=== PATIENT | female | born 1965 | race American Indian/Alaskan Native ===

== ENCOUNTER 2016-06-18 01:37 | Emergency (ER) | payer SELFPAY ==
--- NOTE | 2016-06-18 05:27 | Emergency Department Report ---
Upper Extremity - HPI Chief Complaint: Extremity Problem,Nontraumatic Stated Complaint: RT ARM PAIN Time Seen by Provider: 06/18/16 05:11 Upper Extremity: Right Forearm (tingling and burning pain) Occurred When: >5 Days Mechanism: Other (patient with history of carpal Tunnel) Symptoms: Yes Weakness, No Pain with Movement, No Deformity, No Limited Range of Movement, No Numbness, No Swelling, No Bruising/Ecchymosis, No Laceration or Abrasion Other History: Patient here reports that her right forearm with burning and tingling pain that radiated into her elbow [id number] to her wrists. She states she worked [employer] type in for long periods of today. She says she has a history of the thumb wrists pain and was diagnosed with carpal tunnel but never saw a neurologist. She reports the pain as 3 out of 10 burning pain. This has happened in the past. Denies any fever or chills. Denies any numbness or tingling to hands. Denies any trauma. Patient said that she had steroid shots in the past which worked for a while ED Review of Systems ROS: Stated complaint: RT ARM PAIN Other details as noted in HPI Comment: All other systems reviewed and negative Constitutional: denies: chills, fever Respiratory: no symptoms reported Cardiovascular: denies: chest pain, palpitations, edema, syncope Gastrointestinal: denies: abdominal pain, nausea, vomiting Musculoskeletal: arthralgia. denies: back pain Skin: denies: rash Neurological: paresthesias. denies: headache, weakness, numbness, abnormal gait , vertigo ED Past Medical Hx - Past Medical History Previous Medical History?: Yes Additional medical history: Rt thumb/wrist pain. Carpal tunnel - Surgical History Past Surgical History?: Yes Additional Surgical History: Partial HYST - Family History Family history: hypertension - Social History Smoking Status: Never Smoker Substance Use Type: Alcohol - Medications Home Medications: Home Medications Medication Instructions Recorded Confirmed Last Taken Type predniSONE [Deltasone] 50 mg PO QDAY #5 tab 06/18/16 Unknown Rx traMADol [Ultram 50 MG tab] 50 mg PO Q6HR PRN #20 tablet 06/18/16 Unknown Rx Upper Extremity Exam - Exam General: Vital signs noted. No distress. Alert and acting appropriately. This is a 51-year-old female well-nourished well-developed in no acute distress. Head and Torso: No HEENT Abnormality, No Neck Tenderness, No Chest/Lungs Abnormality, No Abdominal Tenderness, No Back Tenderness Shoulder Exam: Yes Normal Range of Motion in Shoulder, No Shoulder Tenderness, No Clavicle Tenderness, No Shoulder Deformity, No AC Joint Tenderness Arm Exam: No Arm/Humerus Tenderness, No Arm Deformity Elbow: Yes Normal Range of Motion in Elbow, No Elbow Tenderness, No Elbow Deformity Forearm: No Forearm Tenderness, No Forearm Deformity, No Pain with Pronation, No Pain with Supination Wrist: Yes Normal ROM in Wrist, No Wrist Tenderness, No Wrist Deformity, No Snuffbox Tenderness, No Pain with Axial Thumb Compression Hand: Yes Normal ROM in Digit(s), No Hand Tenderness, No Hand Deformity, No Digit Tenderness, No Digit(s) Deformity, No Tendon Dysfunction CMS Exam: Yes Normal Distal Pulses, Yes Normal Capillary Refill, Yes Normal Distal Sensation, No Broken Skin ED Course Vital Signs 06/18/16 01:41 Temperature 98.0 F Pulse Rate 84 Respiratory 18 Rate Blood Pressure 126/86 [Right] O2 Sat by Pulse 99 Oximetry - Reevaluation(s) Reevaluation #2: 06/18/16 06:34 Patient given said 5/325 mg 2 tablets and Decadron 10 mg IM and emergency room. 06/18/16 06:34 - Orthopedic Splinting/Casting Injury #1 Side: right Upper Extremity Injury Location: wrist Upper Extremity Immobilizer: wrist splint ED Medical Decision Making - Medical Decision Making ED course: Patient with arthralgia right forearm with tingling and burning pain. I Explained to patient that she'll need to follow-up with orthopedic doctor and also neurologist to have nerve testing. She had similar incident in the past her wrist and thumb on the right side. See procedure note for detail and splinting. Patient was given Percocet 5/325 2 tablets emergency room along with Decadron 10 mg IM. Discharged home with prescription for prednisone and Ultram. Critical care attestation.: If time is entered above; I have spent that time in minutes in the direct care of this critically ill patient, excluding procedure time. ED Disposition Clinical Impression: Arthralgia of right forearm Disposition: DISCHARGED TO HOME OR SELFCARE Is pt being admited?: No Does the pt Need Aspirin: No Condition: Stable Instructions: Arthralgia (ED) Additional Instructions: Please wear wrist splint Take Ultram and prednisone to help with pain. Neurologists in the discharge paperwork for further testing. Prescriptions: predniSONE [Deltasone] 50 mg PO QDAY #5 tab traMADol [Ultram 50 MG tab] 50 mg PO Q6HR PRN #20 tablet PRN Reason: Pain Referrals: GURJIT ALVARADO MD [Staff Physician] - 06/20/16 PRIMARY CAREMD [Primary Care Provider] - 06/20/16 Forms: Accompanied Note, Work/School Release Form(ED)
[2016-06-18] MEDS: PERCOCET 5/325 PO ONE (05:54)
[2016-06-18] MEDS: DECADRON IM STA (05:54)
[2016-06-18 07:07] VITALS: BP 143/88
== END 2016-06-18 07:09 | disposition home or self-care (01) ==
LOC: ED 01:37
DX: M79.631 Pain in right forearm (principal)
CPT/HCPCS: 29125; 96372; 99282; J1100

== ENCOUNTER 2017-05-20 22:49 | Emergency (ER) | payer SELFPAY ==
[2017-05-20 23:28] VITALS: BP 112/79
--- NOTE | 2017-05-21 00:25 | XRay Report ---
FINAL REPORT EXAM: XR TOE(S) 2+V LT HISTORY: Laptop fell on lt great toe, swelling bleeding TECHNIQUE: Three views of the left great toe were submitted. FINDINGS: There is soft tissue swelling around the distal phalanx. There is no evidence of fracture or dislocation. There is no evidence of radiopaque foreign body. IMPRESSION: Soft swelling around the distal phalanx of the great toe. No associated fracture.
[2017-05-21] MEDS ORDERED: TYLENOL ONE (02:30)
[2017-05-21] MEDS ORDERED: TYLENOL PO ONE (02:31)
== END 2017-05-21 02:50 | disposition left against medical advice (07) ==
LOC: ED 22:49
DX: M79.675 Pain in left toe(s) (principal); Z53.21 Procedure and treatment not carried out due to patient leaving prior to being seen by health care provider

== ENCOUNTER → 2017-05-21 | Emergency (ER) | payer SELFPAY ==
[~2017-05-21] MED LIST: BOOSTRIX IM ONE; NORCO 10/325 PO ONE; SILVER NITRATE TP ONE; XYLOCAINE 2% INFILTRATI ONE
--- NOTE | 2017-05-21 11:25 | Emergency Department Report ---
ED Lower Extremity HPI - General Chief Complaint: Extremity Injury, Lower Stated Complaint: LEFT FOOT INJURY Time Seen by Provider: 05/21/17 11:23 Source: patient Mode of arrival: Ambulatory Limitations: No Limitations - History of Present Illness Initial Comments: This is a 52 y.o. female that presents with pain and laceration to left great toe from last night. Patient dropped a laptop on left foot last night. She came in to ER and had xray of toes last night but couldn't wait for results and left. Patient reports cleaning toe with soap, water, and peroxide last night and applying a gauze dressing. She was able to stop bleeding but the pain is unbearable. Pain is 10/10 and constant. Admits to swelling, bleeding, redness, and throbbing pain. States tip of toe nail is pulled but will not come off and the pain is unbearable. She is taking OTC Tylenol with no improvement of symptoms. Denies numbness and tingling, LOC, nausea, and vomiting. MD Complaint: foot injury (left great toe nail) -: Last night Injury: Toes: Left (great toenail) Type of Injury: blunt (laptop fell on left great toe) Place: home Severity: severe Severity scale (0 -10): 10 Improves With: nothing Worsens With: weight bearing, movement, palpation Context: direct blow Associated Symptoms: able to partially bear weight Treatments Prior to Arrival: cold therapy, bandage, NSAIDS - Related Data Previous Rx's Medication Instructions Recorded Last Taken Type Promethazine [Phenergan TAB] 25 mg PO Q6HR PRN #20 tab 06/18/16 Unknown Rx predniSONE [Deltasone] 50 mg PO QDAY #5 tab 06/18/16 Unknown Rx traMADol [Ultram 50 MG tab] 50 mg PO Q6HR PRN #20 tablet 06/18/16 Unknown Rx Cephalexin [Keflex] 500 mg PO Q12HR 7 Days #14 cap 05/21/17 Unknown Rx Ibuprofen 800 mg PO Q6H PRN #20 tablet 05/21/17 Unknown Rx Promethazine [Phenergan TAB] 25 mg PO Q6HR PRN #10 tab 05/21/17 Unknown Rx Allergies Allergy/AdvReac Type Severity Reaction Status Date / Time No Known Allergies Allergy Verified 06/18/16 01:57 ED Review of Systems ROS: Stated complaint: LEFT FOOT INJURY Other details as noted in HPI Constitutional: denies: chills, fever Respiratory: denies: cough, shortness of breath, wheezing Cardiovascular: denies: chest pain, palpitations Gastrointestinal: denies: abdominal pain, nausea, vomiting, diarrhea Skin: change in hair/nails (broken left great toe nail). denies: rash, lesions Neurological: denies: headache, weakness, paresthesias Psychiatric: denies: anxiety, depression ED Past Medical Hx - Past Medical History Previous Medical History?: Yes Additional medical history: Rt thumb/wrist pain. Carpal tunnel - Surgical History Past Surgical History?: Yes Additional Surgical History: Partial HYST - Social History Smoking Status: Former Smoker Substance Use Type: Alcohol, Prescribed - Medications Home Medications: Home Medications Medication Instructions Recorded Confirmed Last Taken Type Promethazine [Phenergan TAB] 25 mg PO Q6HR PRN #20 tab 06/18/16 Unknown Rx predniSONE [Deltasone] 50 mg PO QDAY #5 tab 06/18/16 Unknown Rx traMADol [Ultram 50 MG tab] 50 mg PO Q6HR PRN #20 tablet 06/18/16 Unknown Rx Cephalexin [Keflex] 500 mg PO Q12HR 7 Days #14 cap 05/21/17 Unknown Rx Ibuprofen 800 mg PO Q6H PRN #20 tablet 05/21/17 Unknown Rx Promethazine [Phenergan TAB] 25 mg PO Q6HR PRN #10 tab 05/21/17 Unknown Rx ED Physical Exam - General Limitations: No Limitations General appearance: alert, in no apparent distress - Respiratory Respiratory exam: Present: normal lung sounds bilaterally. Absent: respiratory distress, wheezes, rales, rhonchi, stridor - Cardiovascular Cardiovascular Exam: Present: regular rate, normal rhythm, normal heart sounds. Absent: systolic murmur, diastolic murmur, rubs, gallop - GI/Abdominal GI/Abdominal exam: Present: soft, normal bowel sounds. Absent: distended, tenderness, guarding, rebound, rigid - Expanded Lower Extremity Exam Left Hip exam: Present: normal inspection, full ROM Upper Leg exam: Present: normal inspection, full ROM Knee exam: Present: normal inspection, full ROM Lower Leg exam: Present: normal inspection, full ROM Ankle exam: Present: normal inspection, full ROM Foot/Toe exam: Present: ecchymosis, erythema, nail avulsion (partial avulsion of distal nail, intact at the epionychium, mild active bleeding, 1 cm laceration noted and no foreign body) Neuro vascular tendon exam: Present: no vascular compromise - Neurological Exam Neurological exam: Present: alert, oriented X3, abnormal gait - Psychiatric Psychiatric exam: Present: normal affect, normal mood. Absent: depressed, agitated, flat affect - Skin Skin exam: Present: warm, dry, intact, normal color. Absent: rash ED Course Vital Signs 05/21/17 05/21/17 10:32 15:35 Temperature 98 F Pulse Rate 106 H 74 Respiratory 20 16 Rate Blood Pressure 147/91 Blood Pressure 118/54 [Left] O2 Sat by Pulse 97 96 Oximetry ED Lower Extremity MDM - Radiology Data Radiology results: report reviewed Soft swelling around the distal phalanx of the great toe. No associated fracture. - Medical Decision Making This is a 52 y.o. female presents with left 1st digit avulsion for 1 day. Patient examined by me. X-ray of left toes obtained last night, Soft swelling around the distal phalanx of the great toe. No associated fracture. Patient is non-toxic appearing and stable. Physical examination is susceptible of left toe avulsion. The area surrounding the skin lesion was prepared and draped in the usual sterile manner. The patient is placed in the supine position. The toe was prepped with iodine solution. A standard digital block was performed, using about 2 to 3 mL of lidocaine on each side of the toe for anesthesia. A 11 blade scapular was slid under the nail plate from the overlying proximal nail fold and cut free. The distal nail plate has been removed. Vaseline impregnated gauze was applied followed by a bulky gauze dressing. Discharged home for outpatient treatment with keflex 500 mg po bid x 7 days. Iburprofen 800 mg po q6h #20 for pain. Phenergan 25 mg po q6h #10 for nausea with antibiotics. Discussed ER care plan with patient. Patient agreed with plan. F/U with PCP in 2 -3 days. Critical care attestation.: If time is entered above; I have spent that time in minutes in the direct care of this critically ill patient, excluding procedure time. ED Disposition Clinical Impression: Avulsion of nail bed Traumatic avulsion of nail plate of toe Qualifiers: Encounter type: initial encounter Qualified Code(s): S91.209A - Unspecified open wound of unspecified toe(s) with damage to nail, initial encounter Disposition: TO HOME OR SELFCARE Is pt being admited?: No Does the pt Need Aspirin: No Condition: Stable Instructions: Toenail/Fingernail Removal (ED) Additional Instructions: Take tylenol or ibuprofen for pain. Keep left great toe clean with soap and water and apply nonadhesive dressing daily. Take keflex antibiotics as prescribed twice a day for 7 days. Follow up with primary care provider in 2-3 days. Prescriptions: Cephalexin [Keflex] 500 mg PO Q12HR 7 Days #14 cap Ibuprofen 800 mg PO Q6H PRN #20 tablet PRN Reason: Pain Promethazine [Phenergan TAB] 25 mg PO Q6HR PRN #10 tab PRN Reason: Nausea Referrals: SUSAN ABRAHAM MD [Staff Physician] - 3-5 Days [facility] [Provider Group] - 3-5 Days [facility] [Provider Group] - 3-5 Days [facility] [Provider Group] - 3-5 Days [facility] [Provider Group] - 3-5 Days Forms: Work/School Release Form(ED) Time of Disposition: 14:28 Print Language: CZECH
[2017-05-21 15:36] VITALS: BP 118/54
== END | disposition home or self-care (01) ==
LOC: ED 09:57
DX: S91.212A Laceration without foreign body of left great toe with damage to nail, initial encounter (principal); Z87.891 Personal history of nicotine dependence; Z90.710 Acquired absence of both cervix and uterus; W18.09XA Striking against other object with subsequent fall, initial encounter; Y93.89 Activity, other specified; Y99.8 Other external cause status; Y92.009 Unspecified place in unspecified non-institutional (private) residence as the place of occurrence of the external cause
CPT/HCPCS: 90471; 90715